=== PATIENT | female | born 1950 | race Caucasian/White ===

== ENCOUNTER 2017-10-19 09:24 | Day surgery (SDC) | payer MEDICARE ==
[~2017-10-19] VITALS: Ht 157.5 cm; Wt 52.6 kg
[~2017-10-19 09:24] MED LIST: SODIUM CHLORIDE 0.9% 1000ML 1,000 ML IV ONE
[2017-10-19 09:33] VITALS: BP 108/62
[2017-10-19] MEDS ORDERED: PREM625 PO (10:22)
[2017-10-19] MEDS ORDERED: CHOL100018 PO (10:22)
[2017-10-19] MEDS ORDERED: ASTA4CAP PO (10:22)
[2017-10-19] MEDS ORDERED: MAGN400T40 PO (10:22)
[2017-10-19] MEDS ORDERED: CA C1TAB95 PO (10:22)
[2017-10-19] MEDS ORDERED: PREN-155 PO (10:22)
[2017-10-19] MEDS ORDERED: VITA-380 PO (10:22)
[2017-10-19] MEDS ORDERED: CINN500C PO (10:22)
[2017-10-19] MEDS ORDERED: NIAC100T3 PO (10:22)
[2017-10-19] MEDS ORDERED: ASPI-555 PO (10:22)
[2017-10-19] MEDS ORDERED: PROPOFOL 10 MG/ML 20ML VIAL IV ONE (11:01)
[2017-10-19 11:37] VITALS: BP 106/55
== END 2017-10-19 12:15 ==
LOC: ENDO 09:24 → DAH 09:24 → ENDO 12:15
PROVIDERS: ATTEND Internal Medicine Gastroenterology
DX: Z12.11 Encounter for screening for malignant neoplasm of colon (principal); K25.4 Chronic or unspecified gastric ulcer with hemorrhage; K21.9 Gastro-esophageal reflux disease without esophagitis; I10 Essential (primary) hypertension; I48.91 Unspecified atrial fibrillation; G47.33 Obstructive sleep apnea (adult) (pediatric); E78.5 Hyperlipidemia, unspecified; Z79.899 Other long term (current) drug therapy; Z98.890 Other specified postprocedural states; Z90.710 Acquired absence of both cervix and uterus
CPT/HCPCS: 43239; 88305; 88312; A4606; G0121; J2704; J7030

== ENCOUNTER → 2018-01-01 | Outpatient (CLI) | payer MEDICARE ==
[~2018-01-01] MED LIST changes: +ASPI-555 PO; +ASTA4CAP PO; +CA C1TAB95 PO; +CHOL100018 PO; +IOPAMIDOL-370 75 ML VIAL IV ONE; +MAGN400T40 PO; +NIAC100T3 PO; +PREM625 PO; +PREN-155 PO; -SODIUM CHLORIDE 0.9% 1000ML 1,000 ML IV ONE; +VITA-380 PO
== END | disposition home or self-care (01) ==
LOC: OIH 08:51
PROVIDERS: ATTEND Internal Medicine Gastroenterology
DX: N28.1 Cyst of kidney, acquired (principal); R10.84 Generalized abdominal pain; Z80.0 Family history of malignant neoplasm of digestive organs
CPT/HCPCS: 74178; Q9967